=== PATIENT | male | born 1950 | race African-American/Black ===

== ENCOUNTER 2023-05-11 14:21 | Emergency (ER) | payer BC, MEDICAID, MEDICARE, OTHER ==
[~2023-05-11] VITALS: Ht 182.9 cm; Wt 77.0 kg
[2023-05-11 14:25] VITALS: O2SAT 98
[2023-05-11] MEDS ORDERED: SODIUM CHLORIDE 0.9% 1000ML BAG (SEPSIS BOLUS) IV ONE (14:45)
[2023-05-11 15:20] VITALS: TEMP 99.8
[2023-05-11 15:42] LABS: BASOPHILS % 0.3 % (0.0-2.0); HEMATOCRIT. 50.4 % (42.0-52.0); LYMPHOCYTES % 7.6 % (20.0-50.0); MEAN CORPUSCULAR HEMOGLOBIN 28.4 pg (28.0-32.0); MEAN CORPUSCULAR HGB CONC 31.8 g/dL (31.0-37.0); MEAN CORPUSCULAR VOLUME 89.5 fL (80.0-94.0); MEAN PLATELET VOLUME 8.1 fl (7.4-10.4); NEUTROPHILS % 86.1 % (40.0-76.0); PLATELET 140 x1000/uL (130-400); RED BLOOD CELL COUNT 5.63 mill/uL (4.7-6.1); WHITE BLOOD COUNT 7.4 x1000/uL (4.5-11.0)
[2023-05-11 16:00] LABS: ALANINE AMINOTRANSFERASE 25 IU/L (10-49); ALBUMIN 4.4 g/dL (3.2-4.8); ASPARTATE AMINOTRANSFERASE 25 IU/L (<34); BILIRUBIN TOTAL 0.6 mg/dL (0.1-1.0); CALCIUM 9.5 mg/dL (8.7-10.4); CARBON DIOXIDE 23 mEq/L (21-32); CHLORIDE 101 mEq/L (98-107); CREATINE KINASE 287 IU/L (46-171); CREATININE 1.2 mg/dL (0.6-1.3); GLUCOSE 155 mg/dL (70-105); LACTATE DEHYDROGENASE 223 IU/L (120-246); POTASSIUM 4.3 mEq/L (3.5-5.1); PROTEIN TOTAL 7.2 g/dL (6.0-8.3); SODIUM 135 mEq/L (136-145); TROPONIN I HIGH SENSITIVITY 22 ng/L (3.0-53); UREA NITROGEN BLOOD 14 mg/dL (9-23)
[2023-05-11 16:04] LABS: ETHANOL BLOOD < 10 mg/dL (<10)
[2023-05-11 16:24] LABS: INR 1.1; PROTHROMBIN TIME 12.1 sec (9.6-11.0)
[2023-05-11 17:52] LABS: CLARITY URINE CLEAR (CLEAR); COLOR URINE YELLOW (YELLOW); GLUCOSE URINE 3+ (NEGATIVE); KETONES URINE 2+ (NEGATIVE); LEUKOCYTE ESTERASE URINE NEGATIVE (NEGATIVE); NITRITE URINE NEGATIVE (NEGATIVE); OCCULT BLOOD URINE NEGATIVE (NEGATIVE); PH URINE 5.5 (4.5-8.0); PROTEIN URINE TRACE (NEGATIVE); SPECIFIC GRAVITY URINE 1.025 (1.005-1.030)
[2023-05-11 19:24] LABS: BACTERIA URINE NONE SEEN; RBC URINE NONE SEEN /hpf (0-2); SQUAMOUS EPITHELIAL CELL URINE RARE /lpf (RARE/1+); WBC URINE NONE SEEN /hpf (0-2)
[2023-05-11] MEDS ORDERED: ACET-2708 MT (19:44)
[2023-05-11] MEDS ORDERED: TAM75 MT (19:44)
[2023-05-11 20:00] VITALS: BP 132/79; PULSE 99; RESP 23
== END 2023-05-11 21:28 | disposition home or self-care (01) ==
LOC: ER 14:21 → CANBEDREQ 05-13 04:14
DX: J10.1 Influenza due to other identified influenza virus with other respiratory manifestations (principal); I10 Essential (primary) hypertension; E11.9 Type 2 diabetes mellitus without complications; Z20.822 Contact with and (suspected) exposure to COVID-19
CPT/HCPCS: 80053; 81003; 80320; 82550; 83880; 83605; 83615; 85025; 85610; 86850; 86900; 86901; 87040; 87086; 84484; 87804 ×2; 36415; 84145; 71045; 93005; 96360; 99285; 87426; J7030; G0480